=== PATIENT | female | born 1950 | race Caucasian/White ===

== ENCOUNTER → 2017-02-15 | Outpatient (CLI) | payer OTHER | END | disposition home or self-care (01) | LOC: CDC 13:56 | DX: M65.331 Trigger finger, right middle finger (principal) | CPT/HCPCS: 93000 ==

== ENCOUNTER → 2018-04-07 | Outpatient (CLI) | payer OTHER | END | disposition home or self-care (01) | LOC: CDC 15:20 | DX: Z01.810 Encounter for preprocedural cardiovascular examination (principal); K64.9 Unspecified hemorrhoids | CPT/HCPCS: 93000 ==